=== PATIENT | female | born 1980 | race Caucasian/White ===

== ENCOUNTER → 2020-03-21 | Outpatient (CLI) | payer OTHER ==
--- NOTE | 2020-03-21 16:26 | XCELERA REPORT ---
[address] [address] Transthoracic Echocardiogram Report Name: JOSUE BENTLEY Age: 39 yrs Gender: Female : 1980 Patient Status: Outpatient Patient Location: Study Date: 03/21/2020 03:06 PM History: Palpitations Height: 65 in Weight: 126 lb BSA: 1.6 m2 Procedure: A complete two-dimensional transthoracic echocardiogram was performed (2D, M-mode, spectral and color flow Doppler). Reason For Study: PALPITATIONS Previous Evaluation: No previous studies were available. History: Palpitations. Ordering Physician: KIKA RODGERS Performed By: Getachew Ann Interpretation Summary Left ventricular systolic function is normal. The Ejection Fraction estimate is 55-60% The right ventricle is normal in size and function. There is no mitral regurgitation noted. There is no aortic valve stenosis There is a trace or physiologic amount of tricuspid regurgitation There is no pericardial effusion. MMode/2D Measurements & Calculations RVDd: 2.3 cm LVIDd: 4.5 cm FS: 39.1 % Ao root diam: 2.7 cm IVSd: 0.85 cm LVIDs: 2.7 cm EDV(Teich): 91.6 ml Ao root area: 5.7 cm2 LVPWd: 1.0 cm ESV(Teich): 27.8 ml LA dimension: 2.7 cm EF(Teich): 69.6 % Doppler Measurements & Calculations MV E max socorro: MV P1/2t max socorro: Ao V2 max: LV V1 max P.2 cm/sec 95.0 cm/sec 146.1 cm/sec 4.6 mmHg MV A max socorro: MV P1/2t: 59.2 msec Ao max PG: LV V1 max: 59.0 cm/sec MVA(P1/2t): 3.7 cm2 8.5 mmHg 107.6 cm/sec MV E/A: 1.4 MV dec slope: 470.0 cm/sec2 MV dec time: 0.17 sec PA V2 max: MV P1/2t-pr_phl: 94.8 cm/sec 59.2 msec PA max P.6 mmHg Left Ventricle The left ventricle is normal in size. There is normal left ventricular wall thickness. Left ventricular systolic function is normal. The Ejection Fraction estimate is 55-60%. Doppler measurements suggest normal left ventricular diastolic function. The left ventricular wall motion is normal. Right Ventricle The right ventricle is normal in size and function. Atria The right atrium is normal. The left atrial size is normal. The interatrial septum is intact with no evidence for an atrial septal defect. There is no Doppler evidence for an interatrial shunt. Mitral Valve The mitral valve is grossly normal. There is no evidence of mitral valve prolapse. There is no mitral valve stenosis. There is no mitral regurgitation noted. Aortic Valve The aortic valve opens well. There is no aortic valve stenosis. No aortic regurgitation is present. Tricuspid Valve The tricuspid valve is normal in structure and function. There is a trace or physiologic amount of tricuspid regurgitation. Tricuspid regurgitation jet envelope not well defined to measure RV systolic pressure accurately. Doppler findings do not suggest pulmonary hypertension. Pulmonic Valve The pulmonic valve is not well visualized. There is no pulmonic valvular stenosis. There is a trace amount of pulmonic regurgitation. Great Vessels The aortic root is normal size. The inferior vena cava appeared normal and decreased > 50% with respiration (RAP 5-10 mmHg). Effusions There is no pericardial effusion. : KIKA RODGERS Anil
== END ==
LOC: SP 14:55
PROVIDERS: ATTEND Internal Medicine
DX: R07.9 Chest pain, unspecified (principal); R00.2 Palpitations
CPT/HCPCS: 93306